=== PATIENT | male | born 1980 | race Caucasian/White ===

== ENCOUNTER 2025-04-13 13:49 | Emergency (ER) | payer MEDICAID, SELFPAY ==
[2025-04-13 13:53] VITALS: BP 186/93; PULSE 48; RESP 18; TEMP 36.1
[2025-04-13 14:03] VITALS: BP 186/93; PULSE 48; RESP 18; TEMP 36.1; O2SAT 98
--- NOTE | 2025-04-13 14:11 | W.ED.GENAD ---
Discharge Plan Disposition Patient Disposition: Home Condition: Stable Discharge Details Clinical Impression: Dental infection ED Provider: Cayetano Carias Home Meds and New Rx's Prescriptions: New amoxicillin-pot clavulanate 875-125 mg tablet 1 tab PO BID Qty: 14 0RF Discharge Instructions Additional Instructions: Take the antibiotics as prescribed. You should try to follow-up with a dentist. Your blood pressure here was also elevated so you should try and get established with a primary care provider to have this rechecked. You can take 1000 mg of acetaminophen and 600 mg of ibuprofen every 6 hours as needed. If you feel more ill or have new symptoms such as high fevers return to the emergency department for reevaluation. HPI General Mode of arrival: ambulatory. Date/Time Provider Initiated Documentation: 04/13/25 13:53. Limitations to Documentation: no limitations. Information obtained by: patient. History of Present Illness 45 year old M presents to the emergency department with the chief complaint of dental pain, described as moderate, Quality is described as aching, Patient started experiencing this day(s) (7) and it has been constant. No relieving factors improve symptom(s), No exacerbating factors reported . Patient notes no other symptoms.. Patient did receive the following treatments prior to arrival, NSAID Related Data Home Medications ?Medication ?Instructions ?Recorded ?Confirmed amoxicillin 875 mg-potassium 1 tab PO BID #14 tabs 04/13/25 clavulanate 125 mg tablet Previous Rx's ?Medication ?Instructions ?Recorded amoxicillin 875 mg-potassium 1 tab PO BID #14 tabs 04/13/25 clavulanate 125 mg tablet General Stated Complaint: DentalOral MELANIE: 4 Review of Systems All systems reviewed & are unremarkable except as noted in HPI and below Constitutional Constitutional: Denies chills, Denies fever(s) and Denies weakness ENT Ears, Nose, Mouth, and Throat: Reports dental pain Cardiovascular Cardiovascular: Denies chest pain and Denies dyspnea Respiratory Respiratory: Denies cough and Denies dyspnea Gastrointestinal Gastrointestinal: Denies abdominal pain, Denies nausea and Denies vomiting Neurologic Neurologic: Denies weakness Exam Const General: no acute distress Orientation: alert HENWY Head: normal to inspection Ears: external ears normal General nose exam: external nose normal Mouth: moist mucous membranes Teeth and gingiva: poor dentition Eyes General: appearance normal, both eyes and all related structures Neck Neck: normal visual inspection Resp Effort & Inspection: normal respiratory effort and able to speak in complete sentences Cardio Rate: regular rate Skin General skin exam: no rashes or lesions noted Neuro General: patient alert and patient oriented x3 Extrem General: normal to inspection Psych Mental Status: mental status grossly normal Course Vital Signs Vital signs: Vital Signs Temperature 36.1 C L 04/13/25 13:53 Pulse 48 L 04/13/25 13:53 Respiratory Rate 18 04/13/25 13:53 Blood Pressure 186/93 H 04/13/25 13:53 Temperature 36.1 C L 04/13/25 14:03 Temperature Source Oral 04/13/25 14:03 Pulse 48 L 04/13/25 14:03 Respiratory Rate 18 04/13/25 14:03 Blood Pressure 186/93 H 04/13/25 14:03 Blood Pressure Position Sitting 04/13/25 14:03 Pulse Oximetry 98 04/13/25 14:03 Pain Level 7 04/13/25 13:53 Medical Decision Making 45-year-old male who denies any chronic medical problems but states he gets frequent dental infections but has not been on antibiotics in the last few months comes in with 7 days of right lower posterior jaw pain similar to when he had prior abscesses per patient. Denies any fevers or systemic symptoms. He is well-appearing speaking full sentences, he has no stridor or drooling. He has no submandibular swelling, no pain over the hyoid or restricted neck movement. His posterior pharynx is normal with a midline uvula. He has numerous eroded teeth, the right posterior molar is eroded and is tender to palpation. He has no visible drainable abscesses currently. He has no findings on exam to suggest entities such as Fili's. I am going to start him on Augmentin. His blood pressure here was elevated and I advised him to follow-up with primary care provider for recheck. Return precautions given Differential Diagnosis Differential Diagnosis: Dental caries, abscess, pulpitis PFSH All Active Problems (Updated 04/13/25 @ 14:14 by Cayetano Carias MD) Dental infection (Acute) Social History Smoking/Tobacco Use Status: Current every day Tobacco Type: cigarettes Smoking risk assessment performed?: Yes Alcohol Intake: former Substance use type: does not use
[2025-04-13] MEDS: Amoxicillin 875/Clav. 125 TAB PO (14:16)
[2025-04-13 14:34] VITALS: BP 186/93; PULSE 48; RESP 18; TEMP 36.1; O2SAT 98
== END 2025-04-13 14:34 | disposition home or self-care (01) ==
LOC: ER 15:09
PROVIDERS: Emergency Provider Emergency Medicine
DX: R68.84 Jaw pain (principal); K04.7 Periapical abscess without sinus; R03.0 Elevated blood-pressure reading, without diagnosis of hypertension
CPT/HCPCS: 99283 ×2